=== PATIENT | female | born 1930 | race Caucasian/White ===

== ENCOUNTER 2018-05-28 16:25 | Emergency (ER) | payer OTHER ==
--- NOTE | 2018-05-28 17:18 | EDPHY ---
H & P Time Seen by Provider: 05/28/18 16:53 HPI/ROS: Chief complaint. Spasm HPI. 88-year-old female presents with complaint that she was lying down today taking and nap and then had a whole body spasm. It lasted for unknown amount of time although she is now without symptoms. She had something similar about a week and half ago. She had no headache or change in vision. She tells me that she feels these are symptoms of a stroke but she has never had a stroke previously. No chest discomfort or shortness of breath or abdominal pain. She tells me that she has had things going on no head for some time as far as confusing thoughts. She has a history of anxiety and depression and her daughter says that she has been having similar symptoms for some time. Denies focal weakness or paresthesias. Difficulty walking this afternoon says after she had her spell. ROS Constitutional. no fever/chills, no weakness Eyes. no problems with vision ENT. no sore throat, no nasal drainage Cardiovascular. no chest pain Respiratory. no shortness of breath, no cough Abdominal. no abdominal pain, no nausea/vomiting, no diarrhea . no problems urinating MS. no calf pain/swelling, no neck/back pain, no joint pain Skin. no rash Lymph. no swollen glands Neuro. No headache but confusing thoughts. Some difficulty walking this afternoon. Past Medical/Surgical History: Anxiety, depression, hypertension Social History: Single, nonsmoker, no alcohol Smoking Status: Never smoked Physical Exam: General Appearance: Alert well-developed female mild distress vital signs show heart rate 101, blood pressure 181/106 and O2 saturation 91% saturation room air Eyes: Pupils equal and round no pallor or injection. ENT, Mouth: Mucous membranes are moist. Respiratory: There are no retractions, lungs are clear to auscultation. Cardiovascular: Regular rate and rhythm. Gastrointestinal: Abdomen is soft and nontender, no masses, bowel sounds normal. Neurological: Awake and alert, sensory and motor exams grossly normal. Speech is normal. Cranial nerves intact. There is no pronator drift. [id number] and [id number] are intact bilaterally. Patient is slightly tremulous Skin: Warm and dry, no rashes. Musculoskeletal: Neck is supple nontender. Extremities symmetrical, full range of motion. Psychiatric: Patient is oriented X 3, there is no agitation. Constitutional: Initial Vital Signs Temperature (C) 36.5 C 05/28/18 16:26 Heart Rate 101 H 05/28/18 16:26 Respiratory Rate 16 05/28/18 16:26 Blood Pressure 181/106 H 05/28/18 16:26 O2 Sat (%) 91 L 05/28/18 16:26 O2 Delivery Mode Room Air Allergies/Adverse Reactions: No Known Allergies Allergy (Verified 05/28/18 16:29) Home Medications: Medication Instructions Recorded Clonazepam 0.25 mg PO Q6 PRN 05/02/12 Liothyronine Sodium [Cytomel 25 12.5 mcg PO DAILY 05/02/12 mcg (RX)] Liothyronine Sodium [Cytomel 25 25 mcg PO HS 05/02/12 mcg (RX)] Lisinopril [Prinivil] 10 mg PO DAILY 05/02/12 [place] Carbonate 150 mg PO HS 05/02/12 PARoxetine CR [Paxil Cr 25mg (RX)] 25 mg PO DAILY 05/02/12 Pharmacy Completed 1 ea [facility] [place] 05/02/12 QUETIAPINE FUMARATE [Seroquel Xr] 150 mg PO HS 05/02/12 Medical Decision Making - Diagnostics Imaging Results: Imaging Impressions Chest X-Ray 05/28/18 17:34 Impression: Hyperexpansion suggests air trapping which could reflect COPD. Head CT 05/28/18 17:34 Impression: 1. Moderate atrophy. 2. No acute hemorrhage, hydrocephalus, or mass effect. 3. Cerebrovascular atherosclerosis. 4. 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 No definite acute infarct. 5. Severe microvascular ischemic gliosis. 6. Consider MRI of the brain, if there is continued clinical concern. Findings and recommendations discussed with Emergency Department physician, SISSY VILLANUEVA at 18:52 hour, 05/28/2018. Final report concurs with initial preliminary interpretation. Procedures: IV normal saline, monitor ED Course/Re-evaluation: Re-evaluation at 7:40 p.m.. Patient is stable. She has no symptoms. She wants to know if she can go home and she does not have any symptoms. Patient is ambulated in the emergency department and walks without difficulty. The patient, her daughter, and I discussed imaging and lab results. We discussed treatment plan including criteria for return importance of follow-up and further evaluation. She expresses understanding and agreement Differential Diagnosis: I considered CVA, acute coronary syndrome, anxiety. - Data Points Laboratory Results: Laboratory Results 05/28/18 18:15 18 18:15 05/28/18 05/28/18 05/28/18 18:19 18:15 18:15 WBC 14.24 10^3/uL H 10^3/uL (3.80-9.50) RBC 4.45 10^6/uL 10^6/uL (4.18-5.33) Hgb 13.4 g/dL g/dL (12.6-16.3) Hct 39.7 % % (38.0-47.0) MCV 89.2 fL fL (81.5-99.8) MCH 30.1 pg pg (27.9-34.1) MCHC 33.8 g/dL g/dL (32.4-36.7) RDW 14.3 % % (11.5-15.2) Plt Count 280 10^3/uL 10^3/uL (150-400) MPV 10.1 fL fL (8.7-11.7) Neut % (Auto) 78.8 % H % (39.3-74.2) Lymph % (Auto) 14.8 % L % (15.0-45.0) [place] % (Auto) 5.3 % % (4.5-13.0) Eos % (Auto) 0.4 % L % (0.6-7.6) Baso % (Auto) 0.4 % % (0.3-1.7) Nucleat RBC Rel Count 0.0 % % (0.0-0.2) Absolute Neuts (auto) 11.21 10^3/uL H 10^3/uL (1.70-6.50) Absolute Lymphs (auto) 2.11 10^3/uL 10^3/uL (1.00-3.00) Absolute Monos (auto) 0.76 10^3/uL 10^3/uL (0.30-0.80) Absolute Eos (auto) 0.06 10^3/uL 10^3/uL (0.03-0.40) Absolute Basos (auto) 0.06 10^3/uL 10^3/uL (0.02-0.10) Absolute Nucleated RBC 0.00 10^3/uL 10^3/uL (0-0.01) Immature Gran % 0.3 % % (0.0-1.1) Immature Gran # 0.04 10^3/uL 10^3/uL (0.00-0.10) Sodium 136 mEq/L mEq/L (135-145) Potassium 4.2 mEq/L mEq/L (3.3-5.0) Chloride 103 mEq/L mEq/L (97-110) Carbon Dioxide 25 mEq/l mEq/l (22-31) Anion Gap 8 mEq/L mEq/L (8-16) BUN 15 mg/dL mg/dL (7-23) Creatinine 1.0 mg/dL mg/dL (0.6-1.0) Estimated GFR 52 Glucose 102 mg/dL H mg/dL (70-100) Calcium 10.1 mg/dL mg/dL (8.5-10.4) POC Troponin I 0.00 ng/mL ng/mL (0.00-0.08) NT-Pro-B Natriuret Pep 186 pg/mL pg/mL (0-450) [place] 0.2 mEq/L L mEq/L (0.6-1.2) Point of Care Test Results: Chemistry 05/28/18 18:19 POC Troponin I 0.00 ng/mL ng/mL (0.00-0.08) Departure - Departure Disposition: Home, Routine, Self-Care Clinical Impression: Anxiety Condition: Good Instructions: Anxiety (ED) Additional Instructions: Continue regular medications as prescribed Return for worsening symptoms or another episode Follow-up with Dr. Hernandez next week for re-evaluation. Referrals: Litzy Restrepo MD [Primary Care Provider] - 2-3 days, call for appt.
--- NOTE | 2018-05-28 18:21 | CPEKG ---
Heart Rate: 79 RR Interval: 759 P-R Interval: 156 QRSD Interval: 90 QT Interval: 388 QTC Interval: 445 P [place]: 49 QRS [place]: -56 T Wave [place]: 39 EKG Severity - ABNORMAL ECG - EKG Impression: SINUS RHYTHM EKG Impression: MULTIPLE ATRIAL PREMATURE COMPLEXES EKG Impression: LAD, CONSIDER LEFT ANTERIOR FASCICULAR BLOCK Electronically Signed By: Jose Adkins 28-May-2018 22:16:27
[2018-05-28 18:28] LABS: PLATELET COUNT 280 10^3/uL (150-400)
[2018-05-28 20:03] VITALS: BP 189/87
== END 2018-05-28 20:03 | disposition home or self-care (01) ==
DX: F41.9 Anxiety disorder, unspecified (principal); I10 Essential (primary) hypertension
CPT/HCPCS: 84484-PO

== ENCOUNTER 2019-04-02 10:01 | Emergency (ER) | payer OTHER ==
[2019-04-02] MEDS ORDERED: NS 500 ML IV ONE (10:11)
--- NOTE | 2019-04-02 10:16 | EDPHY ---
H & P Time Seen by Provider: 04/02/19 10:04 HPI/ROS: CHIEF COMPLAINT: Fell out of bed and feel like I am floating HISTORY OF PRESENT ILLNESS: The patient is an 88-year-old female with a history of anxiety, depression, hypothyroidism, hypertension and several abdominal surgeries. She was sent from [facility] by EMS because this morning at some point she fell out of bed. She does not remember how she fell out of bed and does not remember when. She denies pain or injury. She states however that she feels like she is floating. She also feels like her stomach is floating. She has not vomited. No chest pain or shortness of breath. No fevers. She denies vertigo but states she does feel slightly lightheaded. No recent illness. Vital signs are stable she was saturating 98% on room air for paramedics. No focal weakness or deficits. She does feel generally weak. Severity: Moderate Modifying factors: None not worsened by movement REVIEW OF SYSTEMS: Constitutional: denies: chills, fever, recent illness, recent injury EENTM: denies: blurred vision, double vision, nose congestion Respiratory: denies: cough, shortness of breath Cardiac: denies: chest pain, irregular heart rate, palpitations Gastrointestinal/Abdominal: See HPI denies: abdominal pain, diarrhea, nausea, vomiting, blood streaked stools Genitourinary: denies: dysuria, frequency, hematuria, pain Musculoskeletal: denies: joint pain, muscle pain Skin: denies: lesions, rash, jaundice, bruising Neurological: denies: headache, numbness, paresthesia, tingling, dizziness, weakness Hematologic/Lymphatic: denies: blood clots, easy bleeding, easy bruising Immunologic/allergic: denies: HIV/AIDS, transplant 10 systems reviewed and negative except as noted EXAM: GENERAL: no acute distress. HEAD: Atraumatic, normocephalic. EYES: Pupils equal round and reactive to light, extraocular movements intact, sclera anicteric, conjunctiva are normal. ENT: TMs normal, nares patent, oropharynx clear without exudates. Moist mucous membranes. NECK: Normal range of motion, supple without lymphadenopathy or JVD. LUNGS: Breath sounds clear to auscultation bilaterally and equal. No wheezes rales or rhonchi. HEART: Regular rate and rhythm without murmurs, rubs or gallops. ABDOMEN: Soft, nontender, normoactive bowel sounds. No guarding, no rebound. No masses appreciated. BACK: No CVA tenderness, no spinal tenderness, step-offs or deformities EXTREMITIES: Normal range of motion, no pitting or edema. No clubbing or cyanosis. NEUROLOGICAL: Cranial nerves II through XII grossly intact. Normal speech, normal gait. 4/5 strength, normal movement in all extremities, normal sensation , normal reflexes no pronator drift. PSYCH: Normal mood, normal affect. SKIN: Warm, dry, normal turgor, no visible rashes or lesions. Source: Patient Exam Limitations: No limitations - Medical/Surgical History Hx Asthma: No Hx Chronic Respiratory Disease: No Hx Diabetes: No Hx Cardiac Disease: No Hx Renal Disease: No Hx Cirrhosis: No Hx Alcoholism: No Other PMH: depression, anxiety, hypertension, hypothyroid. , hysterectomy, appendectomy, cholecystectomy - Family History Significant Family History: No pertinent family hx - Social History Smoking Status: Never smoked Alcohol Use: Sober Drug Use: None Constitutional: Initial Vital Signs Heart Rate 86 04/02/19 10:07 Respiratory Rate 15 04/02/19 10:07 Blood Pressure 148/82 H 04/02/19 10:07 O2 Sat (%) 94 04/02/19 10:07 O2 Delivery Mode Room Air Allergies/Adverse Reactions: No Known Allergies Allergy (Verified 05/28/18 16:29) Home Medications: Medication Instructions Recorded Liothyronine Sodium [Cytomel] 04/02/19 Lisinopril 04/02/19 [place] Carbonate 150 mg PO 04/02/19 Paxil 04/02/19 Quetiapine Fumarate [Seroquel] 04/02/19 Medical Decision Making - Diagnostics EKG Interpretation: An EKG obtained and was read and documented in trace view. Please see trace view for full reading and report. Sinus rhythm, no acute ischemic changes, multifocal atrial rhythm Imaging Results: Imaging Impressions Head CT 04/02/19 10:12 Impression: 1. No acute fracture or evidence of acute intracranial injury. 2. Atrophy and white matter disease. Findings discussed with Emergency Department physician, Paul Orozco on 2018, 10:43. Chest X-Ray 04/02/19 10:16 Impression: 1. Clear lungs. No acute process. 2. No pneumothorax or displaced rib fracture. Imaging: Discussed imaging studies w/ chief compliance officer Radiologist ED Course/Re-evaluation: 12:20 p.m. patient states that she is feeling much better. We reviewed lab work and imaging which is reassuring. She is aware of the occasional premature atrial contraction. Daughter has arrived and states that her mom appears to be baseline. Daughter states that the mom often is very anxious in the mornings. I offered admission but they declined and would prefer to go back home. Discussed indications for returning. Differential Diagnosis: Partial list of the Differential diagnosis considered include but were not limited to; arrhythmia, electrolyte abnormality, dehydration, injury and although unlikely based on the history and physical exam, I also considered acute coronary disease, pneumonia, fracture, stroke. I discussed these differential diagnoses and the plan with the patient as well as the usual and expected course. The patient understands that the diagnosis is provisional and that in medicine we are not always correct and that further workup is often warranted. Usual and customary warnings were given. All of the patient's questions were answered. The patient was instructed to return to the emergency department should the symptoms at all worsen or return, otherwise to followup with the physician as we discussed. - Data Points Laboratory Results: Laboratory Results 04/02/19 10:00 04/02/19 10:00 04/02/19 04/02/19 04/02/19 11:50 10:00 10:00 WBC 9.61 10^3/uL H 10^3/uL (3.80-9.50) RBC 4.70 10^6/uL 10^6/uL (4.18-5.33) Hgb 14.4 g/dL g/dL (12.6-16.3) Hct 43.5 % % (38.0-47.0) MCV 92.6 fL fL (81.5-99.8) MCH 30.6 pg pg (27.9-34.1) MCHC 33.1 g/dL g/dL (32.4-36.7) RDW 13.9 % % (11.5-15.2) Plt Count 235 10^3/uL 10^3/uL (150-400) MPV 10.5 fL fL (8.7-11.7) Neut % (Auto) 80.0 % H % (39.3-74.2) Lymph % (Auto) 13.9 % L % (15.0-45.0) Day % (Auto) 5.2 % % (4.5-13.0) Eos % (Auto) 0.3 % L % (0.6-7.6) Baso % (Auto) 0.4 % % (0.3-1.7) Nucleat RBC Rel Count 0.0 % % (0.0-0.2) Absolute Neuts (auto) 7.68 10^3/uL H 10^3/uL (1.70-6.50) Absolute Lymphs (auto) 1.34 10^3/uL 10^3/uL (1.00-3.00) Absolute Monos (auto) 0.50 10^3/uL 10^3/uL (0.30-0.80) Absolute Eos (auto) 0.03 10^3/uL 10^3/uL (0.03-0.40) Absolute Basos (auto) 0.04 10^3/uL 10^3/uL (0.02-0.10) Absolute Nucleated RBC 0.00 10^3/uL 10^3/uL (0-0.01) Immature Gran % 0.2 % % (0.0-1.1) Immature Gran # 0.02 10^3/uL 10^3/uL (0.00-0.10) Sodium 136 mEq/L mEq/L (135-145) Potassium 4.3 mEq/L mEq/L (3.5-5.2) Chloride 101 mEq/L mEq/L (97-110) Carbon Dioxide 23 mEq/l mEq/l (22-31) Anion Gap 12 mEq/L mEq/L (6-14) BUN 9 mg/dL mg/dL (7-23) Creatinine 1.1 mg/dL H mg/dL (0.6-1.0) Estimated GFR 47 Glucose 146 mg/dL H mg/dL (70-100) Calcium 9.7 mg/dL mg/dL (8.5-10.4) Total Bilirubin 0.8 mg/dL mg/dL (0.1-1.4) Conjugated Bilirubin 0.2 mg/dL mg/dL (0.0-0.5) Unconjugated Bilirubin 0.6 mg/dL mg/dL (0.0-1.1) AST 32 IU/L IU/L (14-46) ALT 32 IU/L IU/L (9-52) Alkaline Phosphatase 50 IU/L IU/L (38-126) Total Protein 7.0 g/dL g/dL (6.3-8.2) Albumin 4.4 g/dL g/dL (3.5-5.0) TSH 3.780 uIU/mL uIU/mL (0.465-4.680) Free T4 0.76 ng/dL ng/dL (0.59-2.19) Urine Color PALE YELLOW Urine Appearance CLEAR Urine pH 7.0 (5.0-7.5) Ur Specific [place] 1.002 (1.002-1.030) Urine Protein NEGATIVE (NEGATIVE) Urine Ketones NEGATIVE (NEGATIVE) Urine Blood NEGATIVE (NEGATIVE) Urine Nitrate NEGATIVE (NEGATIVE) Urine Bilirubin NEGATIVE (NEGATIVE) Urine Urobilinogen NEGATIVE EU EU (0.2-1.0) Ur Leukocyte Esterase NEGATIVE (NEGATIVE) Urine RBC NONE SEEN /hpf /hpf (0-3) Urine WBC 0-1 /hpf /hpf (0-3) Ur Epithelial Cells NONE SEEN /lpf /lpf (NONE-1+) Urine Glucose NEGATIVE (NEGATIVE) Medications Given: Discontinued Medications Sodium Chloride (Ns) 500 mls @ 0 mls/hr IV EDNOW ONE; Wide Open PRN Reason: Protocol Stop: 04/02/19 10:12 Last Admin: 04/02/19 10:32 Dose: 500 mls Departure - Departure Disposition: Home, Routine, Self-Care Clinical Impression: Light-headed feeling, Fall out of bed Condition: Good Instructions: Lightheadedness (ED) Referrals: Patient,NotPresent [Unknown] - As per Instructions Kristie Marroquin MD [Medical Doctor] - 3-4 days, if not improved
[2019-04-02 10:26] LABS: PLATELET COUNT 235 10^3/uL (150-400)
--- NOTE | 2019-04-02 10:48 | CPEKG ---
Test Reason : OPEN Blood Pressure : / mmHG Vent. Rate : 082 BPM Atrial Rate : 040 BPM P-R Int : 150 ms QRS Dur : 087 ms QT Int : 410 ms P-R-T Axes : 052 -51 059 degrees QTc Int : 479 ms Sinus rhythm Supraventricular bigeminy LAD, consider left anterior fascicular block Confirmed by Paul Orozco ([id number]) on 04/02/2019 10:48:29 AM Referred By: Paul Orozco Confirmed By:Paul Orozco
[2019-04-02 12:43] VITALS: BP 142/79
== END 2019-04-02 12:43 | disposition home or self-care (01) ==
LOC: EDUNIT#
DX: R42 Dizziness and giddiness (principal); E86.9 Volume depletion, unspecified